=== PATIENT | female | born 1965 | race Caucasian/White ===

== ENCOUNTER → 2020-08-03 | Outpatient (CLI) | payer MEDICARE ==
[2014-04-14 15:15] VITALS: BP 94/54
[~2020-08-03] MED LIST: ASPI-630 PO; DOCU-109 PO; FLUO10CA13 PO; METH-38 PO; NAPR-514 PO; OLAN10TA3 PO; OXYC-325 PO; OXYC1TAB22 PO; PANT40TA77 PO; TIOT18CA IH
== END ==
LOC: LAB 09:53
PROVIDERS: ATTEND Surgery
DX: Z01.812 Encounter for preprocedural laboratory examination (principal); K80.20 Calculus of gallbladder without cholecystitis without obstruction; Z88.0 Allergy status to penicillin; Z20.822 Contact with and (suspected) exposure to COVID-19
CPT/HCPCS: U0003; U0005

== ENCOUNTER 2020-08-06 08:07 | Day surgery (SDC) | payer MEDICARE ==
[~2020-08-06] VITALS: Ht 152.4 cm; Wt 87.0 kg
[~2020-08-06 08:07] MED LIST changes: +HYDROmorphone 2 MG/ML VIAL IVP PRN; +IV RINGERS,LACTATED 1000ML 1,000 ML IV SCH; +MORPHINE SULFATE 2 MG/ML VIAL. IVP PRN; -OXYC-325 PO; +PROCHLORPERAZINE 10 MG/2 ML VIAL. IVP PRN; +fentaNYL PF VIAL 100 MCG/2 ML VIAL IVP PRN
[2020-08-06] MEDS ORDERED: LIDOCAINE 2% PF 5 ML VIAL. ONE (08:08)
[2020-08-06] MEDS ORDERED: PROPOFOL 10 MG/ML (20ML) VIAL. IV ONE (08:08)
[2020-08-06] MEDS ORDERED: ROCURONIUM 50 MG/5 ML VIAL. ONE (08:08)
[2020-08-06] MEDS ORDERED: MIDAZOLAM HCL/PF 2 MG/2 ML VIAL. ONE (08:09)
[2020-08-06] MEDS ORDERED: fentaNYL PF VIAL 250 MCG/5 ML VIAL ONE (08:09)
[2020-08-06 08:33] VITALS: BP 146/75
[2020-08-06] MEDS ORDERED: SURGICEL HEMOSTAT 4X8 EACH. ONE (09:46)
[2020-08-06] MEDS ORDERED: IOHEXOL 300 MG/ML 50 ML VIAL. ONE (09:46)
[2020-08-06] MEDS ORDERED: BUPIVACAINE MPF 0.5% 30 ML VIAL. ONE (09:47)
[2020-08-06] MEDS ORDERED: GLYCOPYRROLATE 1 MG/5 ML VIAL. ONE (10:30)
[2020-08-06] MEDS ORDERED: ALBUTEROL SULFATE 8GM INHALER. INH ONE (10:36)
[2020-08-06] MEDS ORDERED: NEOSTIGMINE METHYLSULFATE 5 MG/5 ML SYRINGE. ONE (10:46)
[2020-08-06] MEDS ORDERED: PHENYLEPHRINE in 0.9% NACL PF 1 MG/10 ML SYRINGE. IV ONE (10:49)
[2020-08-06] MEDS ORDERED: SEVOFLURANE 61 TO 120 MINUTES. IH ONE (10:49)
--- NOTE | 2020-08-06 11:13 | PDOC4 ---
Operative Note Operative Note Operative Note: Preoperative Diagnosis: Symptomatic cholelithiasis Postoperative Diagnosis: Same Procedure: Laparoscopic cholecystectomy with intraoperative cholangiogram Surgeons: Reinaldo Patient Care Technician: Samia PAYTON Anesthesia: Gen. Estimated Blood Loss: 10 mL Specimen: Gallbladder to pathology Drains: None Complications: None Indications: The patient is a 55-year-old female who was referred with suspected symptomatic cholelithiasis. Surgical treatment was offered by means of a laparoscopic cholecystectomy. The risks of surgery were discussed which include bleeding, infection, bile duct injury, bile leak, pain, the potential for additional surgeries or procedures. The patient understands and would like to proceed. Description: The patient was taken to the operating room and laid supine on the operating table. General anesthesia was performed. The abdomen was prepped with ChloraPrep and draped in a standard surgical fashion. A small infraumbilical incision was made with a scalpel. The Veress needle was then inserted and a pneumoperitoneum was then created. A 5 mm trocar was then inserted and the laparoscope was introduced. In the upper midabdomen a 5 mm trocar was inserted and in the right upper quadrant two 2.3 mm mini lap graspers were inserted. The gallbladder was retracted cephalad. The cystic duct was dissected free from surrounding tissues. One clip was placed on the duct near the gallbladder junction. An opening was made in the duct and a cholangiocatheter placed within and secured with a clip. Using contrast dye and fluoroscopy an intraoperative cholangiogram was performed that appeared unremarkable. The clip and catheter were then withdrawn. Three clips were placed on the cystic duct and it was divided. The cystic artery was then identified, dissected free, doubly clipped and divided as well. The gallbladder was then mobilized away from the liver with cautery. The umbilical 5 millimeter trocar was exchanged for an 11 millimeter trocar. The gallbladder was then placed in an endoscopic bag and extracted at the umbilical trocar site. The fascia there was closed with an 0 Vicryl suture and infiltrated with 0.5% marcaine. All blood and irrigation fluid was suctioned and hemostasis was good. The remaining ports were removed and the pneumoperitoneum was relieved. The skin incisions were closed using 4-0 Monocryl suture. Steri-Strips and dressings were then applied. The patient tolerated the procedure well and was sent to the recovery room in stable condition. At the end of the case all counts were correct. AMAURI DALLAS MD August 06, 2020 11:13
[2020-08-06] MEDS ORDERED: ALBUTEROL SULFATE 2.5 MG/3 ML NEBU. ONE (11:15)
--- NOTE | 2020-08-06 11:16 | DISCH ---
DISCHARGE INSTRUCTIONS Condition on Discharge Condition on Discharge: Stable Activity After Discharge Activity Instructions for Disc: Other, see below (no lifting over 20 lbs X 2 weeks) Diet after Discharge Diet after Discharge: Regular Wound Incision Care Wound/Incision Care: Other, see below (may remove bandaids tomorrow and shower) Follow-Up Follow up with: Dr Dallas in 2 weeks in office, call for appt [phone] AMAURI DALLAS MD August 06, 2020 11:16
[2020-08-06] MEDS ORDERED: ALBUTEROL SULFATE 2.5 MG/3 ML NEBU. NEB ONE (11:17)
[2020-08-06] MEDS ORDERED: OXYC-325 PO (11:32)
--- NOTE | 2020-08-06 11:44 | RAD ---
EXAM: Intraoperative cholangiogram. HISTORY: Cholecystectomy. COMPARISON: None. FINDINGS: 3 fluoroscopic images were obtained during an intraoperative cholangiogram. The images demo nstrate contrast opacification of the downstream biliary tree and proximal small bowel. There is no e vidence of a retained stone. The total fluoroscopy time is 24 seconds. IMPRESSION: Intraoperative cholangiogram without evidence of a retained stone. Electronically signed by: Chhaya Amaro MD (08/06/2020 11:41 AM) [id number]
[2020-08-06 12:21] VITALS: BP 101/57
--- NOTE | 2020-08-08 15:08 | PATHOLOGY ---
[facility] Accession Number: [id number] . 01 Material submitted: . gallbladder - GALLBLADDER . 01 Clinical history: . GALLSTONES SYMPTOMATIC CHOLELITHIASIS LAP CHOLECYSTECTOMY W/ GRAMS . 02 Diagnosis: Gallbladder, laparoscopic cholecystectomy: - Cholesterolosis. - Chronic cholecystitis. (JPM:liseth; 08/08/2020) S 08/08/2020 0912 Local . 02 Comment: There are no calculi identified within the gallbladder lumen or specimen container. There is no evidence of malignancy. (JPM:liseth; 08/08/2020) . 02 Electronically signed: . Tal Phan MD, Pathologist NPI- [id number] . 01 Gross description: . The specimen is received in formalin, labeled "Englehart, Alessandra", "gallbladder". Received is an intact gallbladder measuring 7.2 x 2.1 x 2.0 cm. The external surface is wrinkled, shiny and pale blue-green. Opening the gallbladder reveals a green-yellow, velvety, bile-stained mucosa with multiple bright yellow raised streaks extending throughout. No polypoid adhesions or solid masses are identified. The gallbladder wall measures 0.1 cm in thickness. No calculi are identified within the gallbladder or container. Safety And Occupational Health Manager sections are submitted in cassette A1.(SNA; 08/07/2020) RACHEL/KELSY 08/07/2020 0859 Local . 02 Pathologist provided ICD-10: K82.4, K81.1 . 02 CPT . 771528 Specimen Comment: A courtesy copy of this report has been sent to [phone], [phone] Specimen Comment: [id number] Specimen Comment: Report sent to / DR ANDERSON Performed at: [address] [facility] [address], [place], [place] [id number] MD Peter Ortega MD Phone: [phone] Performed at: 02 [facility] [address] [place], [place] [id number] MD Tal Phan MD Phone: [phone]
== END 2020-08-06 12:52 | disposition home or self-care (01) ==
LOC: SURG 08:07
PROVIDERS: ATTEND Surgery
DX: K80.80 Other cholelithiasis without obstruction (principal); J44.9 Chronic obstructive pulmonary disease, unspecified; K21.9 Gastro-esophageal reflux disease without esophagitis; E66.9 Obesity, unspecified; M19.90 Unspecified osteoarthritis, unspecified site; F41.9 Anxiety disorder, unspecified; F32.9 Major depressive disorder, single episode, unspecified; F17.210 Nicotine dependence, cigarettes, uncomplicated; Z79.899 Other long term (current) drug therapy; Z98.890 Other specified postprocedural states; Z88.0 Allergy status to penicillin
CPT/HCPCS: 47563; 74300; A4213; A4314; A4364; A4930; A6219; C1887; J1956; J2250; J2370; J2704; J2710; J3010; J3490; J7613; Q9967; A4452; A4657